=== PATIENT | female | born 1975 | race Caucasian/White ===

== ENCOUNTER 2024-08-07 14:50 | Outpatient (AMB) | payer BC, SELFPAY ==
[2024-08-07 15:10] VITALS: BP 133/74; PULSE 94; RESP 18; TEMP 36.2; O2SAT 98; BMI 21.3
--- NOTE | 2024-08-07 15:10 | GYNCLNT_ITS ---
Vital Signs 08/07/24 15:10 Height 1.7 m Height Method Stated Weight 61.83 kg Weight Measurement Method Standing Scale BMI 21.3 BP 133/74 H Blood Pressure Source Automatic Cuff Blood Pressure Location Left Upper Arm Position Sitting Respiration 18 Pulse 94 Pulse Source Monitor Temp 97.2 F Temp Source Oral Pulse Oximetry (%) 98 Oxygen Delivery Method Room Air Allergies/Home Meds Allergies & Medications Allergies codeine Allergy (Intermediate, Verified 08/14/24 08:47) Agitated meperidine (From Demerol) Allergy (Intermediate, Verified 08/14/24 08:47) Agitated Medication Reconciliation duloxetine 30 mg capsule,delayed release 30 mg PO QDAY 08/14/24 [History] levothyroxine 125 mcg tablet (Synthroid) 125 mcg PO QDAY 08/14/24 [History] Intake Visit Data Collection New Patient or Established: New Patient (never been to [facility]) Reason for Visit:: ANNUAL EXAM Seen by Clinical Staff ONLY (RN/MA): No Senior Svp Required: No Do You Feel Safe at Home: Yes Authorities Contacted: N/A PCP or OBGYN visit in last 3 months: No Hx Now: No Are you currently on any form of Control: No Pain Present Currently: No Pain Scale Used: Armas-Jimenez/Numerical Pain scale:: 0 Smoking Status Smoking Status: Never smoker 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 Thyroidectomy. Stage IV endometriosis status post hysterectomy and right salpingo-oophorectomy. Other Relevant History: Nonfunctioning gallbladder Questionnaires Covid-19 Vaccine Questionnaire Has patient been vacinated for Covid-19 Have you been vacinated for Covid-19: Yes PHQ-9 PHQ-2 Over the last 2 weeks, how often have you been bothered by any of the following problems? 1. Little interest or pleasure in doing things: not at all 2. Feeling down, depressed, or hopeless: not at all Total score: 0 PHQ-9 3. Trouble falling or staying asleep, or sleeping too much: Not at all 4. Feeling tired or having little energy: Not at all 5. Poor appetite or overeating: Not at all 6. Feeling bad about yourself - or that you are a failure or have let yourself or your family down: Not at all 7. Trouble concentrating on things, such as reading the newspaper or watching television: Not at all 8. Moving or speaking so slowly that other people could have noticed? - Or the opposite - being so fidgety or restless that you have been moving around a lot more than usual: not at all 9. Thoughts that you would be better off or of hurting yourself in some way: Not at all Total score: 0 If you checked off any problems, how difficult have these problems made it for you to do your work, take care of things at home, or get along with other people?: not difficult at all Source: Developed by Drs. Jerome Elizabeth, Cinthya Roman, Mark Bailon and colleagues, with an educational maryjane from [employer]. Depression screen completed yes Social History Living Situation History Marital Status: Lives With: Family Housing: House Housing Other:: Daughter age 22 son age 20, both in college Tobacco History Smoking Status: Never smoker Second Hand Smoke Exposure: No Domestic Abuse History Do You Feel Safe at Home: Yes History of Present Illness HPI Narrative The patient is a 48-year-old -2-0-2 who used to see me in [place]. She presents for an annual exam. She has had stage IV endometriosis and has had he had a hysterectomy and right salpingo-oophorectomy she only has her left ovary in place. She has a family history of breast cancer with her mother and aunts. The patient was checked for BRCA1 BRCA2 and she is negative. Of note I do not have any records. She did fill out a new patient information sheet. She has no complaints today specifically no abnormal discharge no breast tenderness no urinary complaints. She had a history of x 2 before her hysterectomy. She has a nonfunctioning gallbladder and gets migraines occasionally. She has occasional hot flashes and night sweats Patient had a hysterectomy /RSO for stage IV endometriosis in the past Menstrual character: absent Menopause concerns/symptoms: Reports none Other pertinent information: Patient only has a left ovary in place. Occasional hot flashes, occasional night sweats at this time Review of Systems Review of Systems Narrative Review of Systems: Pt reports fatigue, irregular heart beats on occasion, occasional stress incon tinence, joint pain, occasional headaches occasional hot flashes and night sweats. She states she has fibrocystic breats with occasional breast pain. Exam General Limitations: no limitations General Appearance: alert, in no apparent distress, comfortable, cooperative, healthy appearing, well developed and well groomed Neck Neck exam: Present normal inspection, full ROM and trachea midline Chest Chest inspection: Present normal inspection and symmetric chest wall rise Exp Chest Breast: bilateral: other (normal breast exam, dense breasts bilaterally) Resp Respiratory exam: Present normal lung sounds bilaterally Card Cardiovascular exam: Present regular rate, normal rhythm and normal heart sounds Abdominal Abdominal exam: Present soft and normal bowel sounds External exam: Present normal external exam Speculum exam: Present normal speculum exam and other (cuff intact) Bimanual exam: Present other (uterus and R adnexa surgically absent) Extremities Extremities exam: Present normal inspection and full ROM Psych Psychiatric exam: Present normal affect and normal mood Skin Skin exam: Present warm, dry, intact and normal color Office Procedures OB Clinic LOC & Office Proc's Nursing/Assessment Patient Status: Initial/New Patient OB Clinic Nursing Assessment: Medication Reconciliation, Update PMH in EMR and Vital Signs OB Clinic Coordination of Care: Education Complex Pt/Fam, Consent,records obtained, informed consent, Lab and Imaging orders and Staff clarify orders Miscellaneous Interventions: Pelvic/Pap Smear Set up New Patient Charge New Patient Point Assignment: 1099 New Patient Point Charge: 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 Mammo with breast US for dense breasts ordered. (2) Family history of breast cancer: Status: Acute Assessment and Plan: Pt Mother, Aunt and PGM + breast CA. Pt has been tested for BRCA 1 and 2 and it was negative.
== END 2024-08-07 16:14 | disposition home or self-care (01) ==
LOC: HODSOBC 14:50
PROVIDERS: PCP Family Medicine; Referring Provider Family Medicine; Supervising Provider Obstetrics & Gynecology; Visit Provider Obstetrics & Gynecology
DX: Z01.419 Encounter for gynecological examination (general) (routine) without abnormal findings (principal); Z11.51 Encounter for screening for human papillomavirus (HPV); Z87.42 Personal history of other diseases of the female genital tract; Z80.3 Family history of malignant neoplasm of breast; Z90.710 Acquired absence of both cervix and uterus; Z90.721 Acquired absence of ovaries, unilateral; Z90.79 Acquired absence of other genital organ(s)
CPT/HCPCS: 99203; Q0091; G0463